=== PATIENT | male | born 1950 | race Caucasian/White ===

== ENCOUNTER 2018-09-05 19:10 | Inpatient (IN) | payer BC ==
[2018-09-05] MEDS: SODIUM CHLORIDE 0.9% 1L BAG IV* (22:23)
[2018-09-05] MEDS: CEFEPIME 2GM/50 ML (PMX) 50 ML IVPB (22:24)
[2018-09-05 22:29] LABS: ADD MAN DIFF? NO
[2018-09-05 22:36] LABS: WHITE BLOOD COUNT 7.4 10^3/ul (4.8-10.8)
[2018-09-05 22:36] LABS: BASOPHILS % 0.4 % (0.0-2.0); EOSINOPHILS # 0.1 10^3/ul (0.0-0.5); EOSINOPHILS % 1.4 % (0.0-7.0); HEMATOCRIT 21.6 % (42.0-52.0); HEMOGLOBIN 7.1 g/dl (14.0-18.0); LYMPHOCYTES % 26.6 % (15.0-51.0); MEAN CORPUSCULAR HEMOGLOBIN 34.8 pg (29.0-33.0); MEAN CORPUSCULAR HGB CONC 32.9 g/dl (32.0-37.0); MEAN CORPUSCULAR VOLUME 105.9 fl (82.0-101.0); MEAN PLATELET VOLUME 9.5 fl (7.4-10.4); MONOCYTE # 0.9 10^3/ul (0.3-0.9); MONOCYTES % 11.7 % (0.0-11.0); NEUTROPHIL # 4.3 10^3/ul (1.6-7.5); NEUTROPHILS % 58.8 % (39.0-77.0); PLATELET COUNT 180 10^3/UL (140-415); RED BLOOD COUNT 2.04 10^6/ul (4.70-6.10); RED CELL DISTRIBUTION WIDTH 14.9 % (11.5-14.5)
[2018-09-05 22:53] LABS: ANION GAP 15 (5-13); BLOOD UREA NITROGEN 62 mg/dl (7-20); CALCIUM 9.7 mg/dl (8.4-10.2); CARBON DIOXIDE 31 mmol/L (21-31); CHLORIDE 95 mmol/L (97-110); CREATININE 10.71 mg/dl (0.61-1.24); Estimated GFR 5 mL/min (>60); GLUCOSE 120 mg/dl (70-220); POTASSIUM 5.1 mmol/L (3.5-5.1); SODIUM 141 mmol/L (135-144)
[2018-09-05 22:55] LABS: INR 0.99; PROTIME 13.2 Sec (11.9-14.9)
[2018-09-05 23:05] LABS: TROPONIN-I < 0.012 ng/ml (0.000-0.120)
[2018-09-05] MEDS: VANCOMYCIN 1 GM (PMX) 250 ML IVPB (23:05)
[2018-09-06] MEDS ORDERED: NACL 0.9% 3 ML SYG IV (03:30)
[2018-09-06] MEDS ORDERED: ONDANSETRON 4 MG TAB PO (03:30)
[2018-09-06] MEDS ORDERED: DOCUSATE SODIUM 100 MG CAP PO (03:30)
[2018-09-06] MEDS: ACETAMINOPHEN 325 MG TAB PO ×3 (04:19→18:24)
[2018-09-06] MEDS: FAMOTIDINE 20 MG TAB PO (04:19)
[2018-09-06 05:51] LABS: ADD MAN DIFF? NO
[2018-09-06 05:57] LABS: ABNORMAL IP MESSAGE 1; BASOPHILS % 0.4 % (0.0-2.0); EOSINOPHILS # 0.1 10^3/ul (0.0-0.5); EOSINOPHILS % 1.3 % (0.0-7.0); HEMATOCRIT 18.2 % (42.0-52.0); LYMPHOCYTES # 1.7 10^3/ul (0.8-2.9); LYMPHOCYTES % 22.1 % (15.0-51.0); MEAN CORPUSCULAR HEMOGLOBIN 35.1 pg (29.0-33.0); MEAN CORPUSCULAR HGB CONC 33.5 g/dl (32.0-37.0); MEAN CORPUSCULAR VOLUME 104.6 fl (82.0-101.0); MONOCYTE # 0.6 10^3/ul (0.3-0.9); MONOCYTES % 7.9 % (0.0-11.0); NEUTROPHIL # 5.1 10^3/ul (1.6-7.5); NEUTROPHILS % 67.6 % (39.0-77.0); PLATELET COUNT 155 10^3/UL (140-415); POSITIVE DIFF @See below; RED BLOOD COUNT 1.74 10^6/ul (4.70-6.10); RED CELL DISTRIBUTION WIDTH 15.2 % (11.5-14.5)
[2018-09-06 05:57] LABS: WHITE BLOOD COUNT 7.5 10^3/ul (4.8-10.8)
[2018-09-06 06:02] LABS: HEMOGLOBIN 6.1 g/dl (14.0-18.0)
[2018-09-06] MEDS: traMADol 50 MG TAB PO ×3 (06:09→15:37)
[2018-09-06 06:29] LABS: ANION GAP 16 (5-13); BLOOD UREA NITROGEN 60 mg/dl (7-20); CALCIUM 8.9 mg/dl (8.4-10.2); CARBON DIOXIDE 25 mmol/L (21-31); CHLORIDE 101 mmol/L (97-110); Estimated GFR 5 mL/min (>60); GLUCOSE 124 mg/dl (70-220); POTASSIUM 4.5 mmol/L (3.5-5.1); SODIUM 142 mmol/L (135-144)
[2018-09-06 06:35] LABS: LACTIC ACID 1.3 mmol/L (0.5-2.0)
[2018-09-06 07:01] LABS: HEMOGLOBIN A1C 5.6 % (0-5.9)
[2018-09-06] MEDS: CALCITRIOL 0.25 MCG CAP PO (08:40)
[2018-09-06] MEDS: FOLIC ACID 1 MG TAB PO (08:40)
[2018-09-06] MEDS: MULTIVIT/CA CARB/B CMPLX/FA TAB PO (08:40)
[2018-09-06] MEDS: LEVETIRACETAM 750 MG TAB PO ×2 (08:40→21:37)
[2018-09-06] MEDS ORDERED: VANCOMYCIN IV PER PHARMACY XX (11:30)
[2018-09-06] MEDS: SEVELAMER 800 MG TAB PO ×2 (12:21→18:27)
[2018-09-06 13:01] LABS: IRON 31 ug/dl (35-150)
[2018-09-06 13:11] LABS: % IRON SATURATION 13 % SAT (22-52); TOTAL IRON BINDING CAPACITY 241 ug/dl (241-421)
[2018-09-06 14:10] LABS: HEPATITIS B SURFACE ANTIGEN NEGATIVE (NEGATIVE)
[2018-09-06 16:48] LABS: ADD MAN DIFF? NO
[2018-09-06 16:50] LABS: BASOPHILS % 0.3 % (0.0-2.0); EOSINOPHILS # 0.3 10^3/ul (0.0-0.5); EOSINOPHILS % 3.8 % (0.0-7.0); HEMATOCRIT 23.9 % (42.0-52.0); HEMOGLOBIN 7.9 g/dl (14.0-18.0); LYMPHOCYTES % 27.8 % (15.0-51.0); MEAN CORPUSCULAR HEMOGLOBIN 33.6 pg (29.0-33.0); MEAN CORPUSCULAR HGB CONC 33.1 g/dl (32.0-37.0); MEAN CORPUSCULAR VOLUME 101.7 fl (82.0-101.0); MEAN PLATELET VOLUME 9.7 fl (7.4-10.4); MONOCYTE # 0.6 10^3/ul (0.3-0.9); MONOCYTES % 8.6 % (0.0-11.0); NEUTROPHIL # 4.2 10^3/ul (1.6-7.5); NEUTROPHILS % 58.8 % (39.0-77.0); PLATELET COUNT 137 10^3/UL (140-415); RED BLOOD COUNT 2.35 10^6/ul (4.70-6.10); RED CELL DISTRIBUTION WIDTH 15.7 % (11.5-14.5)
[2018-09-06 16:50] LABS: WHITE BLOOD COUNT 7.1 10^3/ul (4.8-10.8)
[2018-09-06 18:49] LABS: ADD MAN DIFF? NO
[2018-09-06 18:51] LABS: BASOPHILS % 0.4 % (0.0-2.0); EOSINOPHILS # 0.3 10^3/ul (0.0-0.5); EOSINOPHILS % 3.8 % (0.0-7.0); HEMATOCRIT 25.6 % (42.0-52.0); HEMOGLOBIN 8.7 g/dl (14.0-18.0); LYMPHOCYTES # 1.7 10^3/ul (0.8-2.9); LYMPHOCYTES % 21.8 % (15.0-51.0); MEAN PLATELET VOLUME 9.7 fl (7.4-10.4); MONOCYTE # 0.4 10^3/ul (0.3-0.9); MONOCYTES % 5.1 % (0.0-11.0); NEUTROPHIL # 5.3 10^3/ul (1.6-7.5); NEUTROPHILS % 67.8 % (39.0-77.0); PLATELET COUNT 163 10^3/UL (140-415); RED BLOOD COUNT 2.56 10^6/ul (4.70-6.10); RED CELL DISTRIBUTION WIDTH 15.9 % (11.5-14.5)
[2018-09-06 18:51] LABS: WHITE BLOOD COUNT 7.8 10^3/ul (4.8-10.8)
[2018-09-06] MEDS: VANCOMYCIN 750 MG in SOD CHLORIDE 0.9% 150 ML IVPB (20:12)
[2018-09-06] MEDS: traZODone 50 MG TAB PO (20:14)
[2018-09-06] MEDS: SERTRALINE 50 MG TAB PO (20:14)
[2018-09-06] MEDS: EPOETIN 10000 UNITS/1 ML INJ (ESRD) SC (20:14)
[2018-09-06] MEDS: TAMSULOSIN (SR) 0.4 MG CAP PO (20:14)
[2018-09-06] MEDS: PANTOPRAZOLE (EC) 40 MG TAB PO (20:15)
[2018-09-06] MEDS: clonAZEPAM 0.5 MG TAB PO (20:15)
[2018-09-06] MEDS ORDERED: MELATONIN 2 MG PO (21:00)
[2018-09-06] MEDS: PIPER-TAZO 3.375 GM IV (PMX) 100 ML IVPB (21:39)
[2018-09-06] MEDS: MELATONIN 3 MG TABLET PO (21:39)
[2018-09-06] MEDS ORDERED: PIPER-TAZO 3.375 GM IV (PMX) 100 ML IVPB (22:00)
[2018-09-07 06:21] LABS: ADD MAN DIFF? NO
[2018-09-07 06:26] LABS: WHITE BLOOD COUNT 6.5 10^3/ul (4.8-10.8)
[2018-09-07 06:26] LABS: BASOPHILS % 0.6 % (0.0-2.0); EOSINOPHILS # 0.3 10^3/ul (0.0-0.5); EOSINOPHILS % 4.6 % (0.0-7.0); HEMATOCRIT 22.9 % (42.0-52.0); HEMOGLOBIN 7.6 g/dl (14.0-18.0); LYMPHOCYTES # 1.8 10^3/ul (0.8-2.9); LYMPHOCYTES % 28.2 % (15.0-51.0); MEAN CORPUSCULAR HEMOGLOBIN 34.4 pg (29.0-33.0); MEAN CORPUSCULAR HGB CONC 33.2 g/dl (32.0-37.0); MEAN CORPUSCULAR VOLUME 103.6 fl (82.0-101.0); MEAN PLATELET VOLUME 10.4 fl (7.4-10.4); MONOCYTE # 0.8 10^3/ul (0.3-0.9); MONOCYTES % 12.8 % (0.0-11.0); NEUTROPHIL # 3.4 10^3/ul (1.6-7.5); PLATELET COUNT 139 10^3/UL (140-415); RED BLOOD COUNT 2.21 10^6/ul (4.70-6.10); RED CELL DISTRIBUTION WIDTH 16.5 % (11.5-14.5)
[2018-09-07 06:51] LABS: PHOSPHORUS 3.7 mg/dl (2.5-4.9)
[2018-09-07 06:57] LABS: ANION GAP 13 (5-13); BLOOD UREA NITROGEN 35 mg/dl (7-20); CALCIUM 8.8 mg/dl (8.4-10.2); CARBON DIOXIDE 27 mmol/L (21-31); CHLORIDE 100 mmol/L (97-110); CREATININE 6.49 mg/dl (0.61-1.24); Estimated GFR 9 mL/min (>60); GLUCOSE 117 mg/dl (70-220); POTASSIUM 4.4 mmol/L (3.5-5.1); SODIUM 140 mmol/L (135-144)
[2018-09-07] MEDS: SEVELAMER 800 MG TAB PO ×3 (08:02→18:16)
[2018-09-07] MEDS: FOLIC ACID 1 MG TAB PO (08:30)
[2018-09-07] MEDS: CALCITRIOL 0.25 MCG CAP PO (08:30)
[2018-09-07] MEDS: PIPER-TAZO 3.375 GM IV (PMX) 100 ML IVPB (08:30)
[2018-09-07] MEDS: MULTIVIT/CA CARB/B CMPLX/FA TAB PO ×2 (08:30→08:43)
[2018-09-07] MEDS: PANTOPRAZOLE (EC) 40 MG TAB PO ×2 (08:30→20:18)
[2018-09-07] MEDS: LEVETIRACETAM 750 MG TAB PO ×2 (08:30→20:19)
[2018-09-07] MEDS: traMADol 50 MG TAB PO (08:43)
[2018-09-07 10:46] LABS: RETICULOCYTE RBC 2.24
[2018-09-07 10:46] LABS: RETICULOCYTE COUNT % 1.8 % (0.5-1.5)
[2018-09-07 10:51] LABS: PLATELET COUNT 151 10^3/UL (140-415)
[2018-09-07 11:04] LABS: INR 1.07; PT RATIO 1.1
[2018-09-07 11:05] LABS: PARTIAL THROMBOPLASTIN TIME 43.8 Sec (23.0-35.0)
[2018-09-07 11:06] LABS: THROMBIN TIME 16.9 SEC (13.8-19.1)
[2018-09-07 11:08] LABS: D-DIMER 1657.63 ng/ml (<460)
[2018-09-07 11:28] LABS: FIBRIN SPLIT PRODUCT <10 ug/ml (<10)
[2018-09-07] MEDS: ACETAMINOPHEN 325 MG TAB PO (13:40)
[2018-09-07] MEDS: SUCRALFATE (100 MG/ML) 10ML CUP PO ×2 (17:00→20:18)
[2018-09-07] MEDS: METOCLOPRAMIDE 10 MG INJ IV (18:16)
[2018-09-07] MEDS: MELATONIN 3 MG TABLET PO (20:18)
[2018-09-07] MEDS: TAMSULOSIN (SR) 0.4 MG CAP PO (20:18)
[2018-09-07] MEDS: traZODone 50 MG TAB PO (20:19)
[2018-09-07] MEDS: SERTRALINE 50 MG TAB PO (20:19)
[2018-09-07] MEDS: clonAZEPAM 0.5 MG TAB PO (20:19)
[2018-09-07 23:07] LABS: IMMEDIATE SPIN CROSSMATCH 1 4
[2018-09-08] MEDS: HEPARIN 1000 UNITS/ML 10 ML INJ CATHETER (00:41)
[2018-09-08] MEDS: METOCLOPRAMIDE 10 MG INJ IV ×4 (00:55→17:50)
[2018-09-08] MEDS: PIPER-TAZO 3.375 GM IV (PMX) 100 ML IVPB ×3 (00:55→20:50)
[2018-09-08] MEDS: traMADol 50 MG TAB PO ×2 (00:56→20:50)
[2018-09-08 05:55] LABS: ADD MAN DIFF? NO
[2018-09-08 05:59] LABS: WHITE BLOOD COUNT 7.1 10^3/ul (4.8-10.8)
[2018-09-08 05:59] LABS: BASOPHILS % 0.6 % (0.0-2.0); EOSINOPHILS # 0.4 10^3/ul (0.0-0.5); EOSINOPHILS % 6.2 % (0.0-7.0); HEMATOCRIT 28.1 % (42.0-52.0); HEMOGLOBIN 9.4 g/dl (14.0-18.0); LYMPHOCYTES % 28.7 % (15.0-51.0); MEAN CORPUSCULAR HGB CONC 33.5 g/dl (32.0-37.0); MEAN CORPUSCULAR VOLUME 98.6 fl (82.0-101.0); MEAN PLATELET VOLUME 9.8 fl (7.4-10.4); MONOCYTE # 0.6 10^3/ul (0.3-0.9); MONOCYTES % 8.8 % (0.0-11.0); NEUTROPHIL # 3.9 10^3/ul (1.6-7.5); NEUTROPHILS % 54.4 % (39.0-77.0); PLATELET COUNT 183 10^3/UL (140-415); RED BLOOD COUNT 2.85 10^6/ul (4.70-6.10); RED CELL DISTRIBUTION WIDTH 17.5 % (11.5-14.5)
[2018-09-08 06:18] LABS: ANION GAP 8 (5-13); BLOOD UREA NITROGEN 20 mg/dl (7-20); CALCIUM 9.2 mg/dl (8.4-10.2); CARBON DIOXIDE 31 mmol/L (21-31); CHLORIDE 104 mmol/L (97-110); CREATININE 4.52 mg/dl (0.61-1.24); Estimated GFR 13 mL/min (>60); GLUCOSE 104 mg/dl (70-220); POTASSIUM 4.5 mmol/L (3.5-5.1); SODIUM 143 mmol/L (135-144)
[2018-09-08 06:20] LABS: VANCOMYCIN,RANDOM 11.8 ug/ml
[2018-09-08] MEDS: SEVELAMER 800 MG TAB PO ×3 (09:10→17:49)
[2018-09-08] MEDS: SUCRALFATE (100 MG/ML) 10ML CUP PO ×4 (09:10→20:50)
[2018-09-08] MEDS: FOLIC ACID 1 MG TAB PO (09:10)
[2018-09-08] MEDS: PANTOPRAZOLE (EC) 40 MG TAB PO ×2 (09:10→20:50)
[2018-09-08] MEDS: LEVETIRACETAM 750 MG TAB PO ×2 (09:10→20:51)
[2018-09-08] MEDS: MULTIVIT/CA CARB/B CMPLX/FA TAB PO (09:10)
[2018-09-08] MEDS: CALCITRIOL 0.25 MCG CAP PO (09:11)
[2018-09-08 10:43] LABS: OCCULT BLOOD STOOL NEGATIVE (NEGATIVE)
[2018-09-08] MEDS: EPOETIN 10000 UNITS/1 ML INJ (ESRD) SC (17:50)
[2018-09-08] MEDS: traZODone 50 MG TAB PO (20:50)
[2018-09-08] MEDS: MELATONIN 3 MG TABLET PO (20:51)
[2018-09-08] MEDS: SERTRALINE 50 MG TAB PO (20:51)
[2018-09-08] MEDS: TAMSULOSIN (SR) 0.4 MG CAP PO (20:51)
[2018-09-08] MEDS: clonAZEPAM 0.5 MG TAB PO (20:51)
[2018-09-09] MEDS: METOCLOPRAMIDE 10 MG INJ IV ×2 (00:38→05:31)
[2018-09-09 06:21] LABS: ADD MAN DIFF? NO
[2018-09-09 06:29] LABS: WHITE BLOOD COUNT 6.8 10^3/ul (4.8-10.8)
[2018-09-09 06:29] LABS: BASOPHILS % 0.6 % (0.0-2.0); EOSINOPHILS # 0.5 10^3/ul (0.0-0.5); EOSINOPHILS % 7.3 % (0.0-7.0); HEMATOCRIT 28.6 % (42.0-52.0); HEMOGLOBIN 9.3 g/dl (14.0-18.0); LYMPHOCYTES # 2.5 10^3/ul (0.8-2.9); LYMPHOCYTES % 36.9 % (15.0-51.0); MEAN CORPUSCULAR HEMOGLOBIN 32.9 pg (29.0-33.0); MEAN CORPUSCULAR HGB CONC 32.5 g/dl (32.0-37.0); MEAN CORPUSCULAR VOLUME 101.1 fl (82.0-101.0); MONOCYTE # 0.6 10^3/ul (0.3-0.9); MONOCYTES % 8.7 % (0.0-11.0); PLATELET COUNT 189 10^3/UL (140-415); RED BLOOD COUNT 2.83 10^6/ul (4.70-6.10); RED CELL DISTRIBUTION WIDTH 17.2 % (11.5-14.5)
[2018-09-09 06:49] LABS: ANION GAP 10 (5-13); BLOOD UREA NITROGEN 37 mg/dl (7-20); CALCIUM 9.4 mg/dl (8.4-10.2); CARBON DIOXIDE 25 mmol/L (21-31); CHLORIDE 108 mmol/L (97-110); CREATININE 6.89 mg/dl (0.61-1.24); Estimated GFR 8 mL/min (>60); GLUCOSE 100 mg/dl (70-220); POTASSIUM 5.1 mmol/L (3.5-5.1); SODIUM 143 mmol/L (135-144)
[2018-09-09 07:09] LABS: PHOSPHORUS 3.1 mg/dl (2.5-4.9)
[2018-09-09 07:09] LABS: MAGNESIUM 2.1 mg/dl (1.7-2.5)
[2018-09-09] MEDS: FOLIC ACID 1 MG TAB PO (08:30)
[2018-09-09] MEDS: PANTOPRAZOLE (EC) 40 MG TAB PO ×2 (08:30→22:56)
[2018-09-09] MEDS: SUCRALFATE (100 MG/ML) 10ML CUP PO ×4 (08:30→22:55)
[2018-09-09] MEDS: LEVETIRACETAM 750 MG TAB PO ×2 (08:30→22:59)
[2018-09-09] MEDS: CIPROFLOXACIN 400MG/D5W 200 ML IVPB (08:30)
[2018-09-09] MEDS: SEVELAMER 800 MG TAB PO ×3 (08:31→16:54)
[2018-09-09] MEDS: CALCITRIOL 0.25 MCG CAP PO (08:31)
[2018-09-09] MEDS: MULTIVIT/CA CARB/B CMPLX/FA TAB PO (08:31)
[2018-09-09] MEDS ORDERED: METOCLOPRAMIDE 10 MG INJ IV (09:00)
[2018-09-09] MEDS: traMADol 50 MG TAB PO ×3 (10:54→22:57)
[2018-09-09] MEDS: LACTOBACILLUS RHAMNOSUS CAP PO ×2 (12:47→22:56)
[2018-09-09] MEDS: ACETAMINOPHEN 325 MG TAB PO ×2 (12:47→20:05)
[2018-09-09 19:06] LABS: ADD UMIC YES; UR ASCORBIC ACID NEGATIVE (NEGATIVE); UR BILIRUBIN (Dip) NEGATIVE (NEGATIVE); UR BLOOD (Dip) NEGATIVE (NEGATIVE); UR CLARITY CLEAR (CLEAR); UR COLOR YELLOW (YELLOW); UR GLUCOSE (Dip) 1+ mg/dL (NEGATIVE); UR KETONES (Dip) NEGATIVE (NEGATIVE); UR LEUKOCYTE ESTERASE (Dip) NEGATIVE Leu/ul (NEGATIVE); UR NITRITE (Dip) NEGATIVE (NEGATIVE); UR RBC 1 /HPF (0-5); UR SPECIFIC GRAVITY (Dip) 1.014 (1.003-1.030); UR TOTAL PROTEIN (Dip) 2+ mg/dl (NEGATIVE); UR UROBILINOGEN (Dip) NEGATIVE (NEGATIVE); UR WBC 2 /HPF (0-5)
[2018-09-09] MEDS: HEPARIN 1000 UNITS/ML 10 ML INJ CATHETER (22:13)
[2018-09-09] MEDS: clonAZEPAM 0.5 MG TAB PO (22:55)
[2018-09-09] MEDS: TAMSULOSIN (SR) 0.4 MG CAP PO (22:55)
[2018-09-09] MEDS: traZODone 50 MG TAB PO (22:55)
[2018-09-09] MEDS: MELATONIN 3 MG TABLET PO (22:55)
[2018-09-09] MEDS: SERTRALINE 50 MG TAB PO (22:56)
[2018-09-10 05:48] LABS: ADD MAN DIFF? NO
[2018-09-10 05:59] LABS: BASOPHIL # 0.1 10^3/ul (0.0-0.1); BASOPHILS % 0.6 % (0.0-2.0); EOSINOPHILS # 0.5 10^3/ul (0.0-0.5); HEMATOCRIT 29.1 % (42.0-52.0); HEMOGLOBIN 9.6 g/dl (14.0-18.0); LYMPHOCYTES # 2.2 10^3/ul (0.8-2.9); LYMPHOCYTES % 28.1 % (15.0-51.0); MEAN CORPUSCULAR HEMOGLOBIN 32.5 pg (29.0-33.0); MEAN CORPUSCULAR VOLUME 98.6 fl (82.0-101.0); MEAN PLATELET VOLUME 9.9 fl (7.4-10.4); MONOCYTE # 0.6 10^3/ul (0.3-0.9); MONOCYTES % 7.6 % (0.0-11.0); NEUTROPHIL # 4.4 10^3/ul (1.6-7.5); NEUTROPHILS % 55.4 % (39.0-77.0); PLATELET COUNT 205 10^3/UL (140-415); RED BLOOD COUNT 2.95 10^6/ul (4.70-6.10); RED CELL DISTRIBUTION WIDTH 16.3 % (11.5-14.5)
[2018-09-10 05:59] LABS: WHITE BLOOD COUNT 7.9 10^3/ul (4.8-10.8)
[2018-09-10 06:16] LABS: ANION GAP 12 (5-13); BLOOD UREA NITROGEN 23 mg/dl (7-20); CALCIUM 9.5 mg/dl (8.4-10.2); CARBON DIOXIDE 27 mmol/L (21-31); CHLORIDE 101 mmol/L (97-110); CREATININE 4.74 mg/dl (0.61-1.24); Estimated GFR 12 mL/min (>60); GLUCOSE 100 mg/dl (70-220); POTASSIUM 4.5 mmol/L (3.5-5.1); SODIUM 140 mmol/L (135-144)
[2018-09-10] MEDS: CALCITRIOL 0.25 MCG CAP PO (08:59)
[2018-09-10] MEDS: SUCRALFATE (100 MG/ML) 10ML CUP PO ×4 (08:59→22:26)
[2018-09-10] MEDS: PANTOPRAZOLE (EC) 40 MG TAB PO ×2 (08:59→22:27)
[2018-09-10] MEDS: SEVELAMER 800 MG TAB PO ×3 (09:00→17:42)
[2018-09-10] MEDS: MULTIVIT/CA CARB/B CMPLX/FA TAB PO (09:00)
[2018-09-10] MEDS: LACTOBACILLUS RHAMNOSUS CAP PO ×2 (09:00→22:26)
[2018-09-10] MEDS: CIPROFLOXACIN 400MG/D5W 200 ML IVPB (09:00)
[2018-09-10] MEDS: LEVETIRACETAM 750 MG TAB PO ×2 (09:01→22:28)
[2018-09-10] MEDS: FOLIC ACID 1 MG TAB PO (09:01)
[2018-09-10] MEDS: traMADol 50 MG TAB PO (10:33)
[2018-09-10] MEDS: ACETAMINOPHEN 325 MG TAB PO (10:34)
[2018-09-10] MEDS: clonAZEPAM 0.5 MG TAB PO (22:26)
[2018-09-10] MEDS: SERTRALINE 50 MG TAB PO (22:26)
[2018-09-10] MEDS: TAMSULOSIN (SR) 0.4 MG CAP PO (22:27)
[2018-09-10] MEDS: MELATONIN 3 MG TABLET PO (22:27)
[2018-09-10] MEDS: traZODone 50 MG TAB PO (22:27)
[2018-09-11 05:34] LABS: ADD MAN DIFF? NO
[2018-09-11 05:36] LABS: WHITE BLOOD COUNT 8.1 10^3/ul (4.8-10.8)
[2018-09-11 05:36] LABS: BASOPHILS % 0.5 % (0.0-2.0); EOSINOPHILS # 0.5 10^3/ul (0.0-0.5); HEMATOCRIT 30.2 % (42.0-52.0); HEMOGLOBIN 9.7 g/dl (14.0-18.0); LYMPHOCYTES # 2.5 10^3/ul (0.8-2.9); LYMPHOCYTES % 30.6 % (15.0-51.0); MEAN CORPUSCULAR HEMOGLOBIN 32.4 pg (29.0-33.0); MEAN CORPUSCULAR HGB CONC 32.1 g/dl (32.0-37.0); MEAN PLATELET VOLUME 9.6 fl (7.4-10.4); MONOCYTE # 0.6 10^3/ul (0.3-0.9); MONOCYTES % 7.7 % (0.0-11.0); NEUTROPHIL # 4.3 10^3/ul (1.6-7.5); PLATELET COUNT 244 10^3/UL (140-415); RED BLOOD COUNT 2.99 10^6/ul (4.70-6.10)
[2018-09-11 05:58] LABS: ANION GAP 8 (5-13); BLOOD UREA NITROGEN 23 mg/dl (7-20); CALCIUM 9.3 mg/dl (8.4-10.2); CARBON DIOXIDE 28 mmol/L (21-31); CHLORIDE 103 mmol/L (97-110); CREATININE 4.68 mg/dl (0.61-1.24); Estimated GFR 13 mL/min (>60); GLUCOSE 102 mg/dl (70-220); POTASSIUM 4.4 mmol/L (3.5-5.1); SODIUM 139 mmol/L (135-144)
[2018-09-11] MEDS: LACTOBACILLUS RHAMNOSUS CAP PO (08:35)
[2018-09-11] MEDS: MULTIVIT/CA CARB/B CMPLX/FA TAB PO (08:35)
[2018-09-11] MEDS: LEVETIRACETAM 750 MG TAB PO (08:35)
[2018-09-11] MEDS: SUCRALFATE (100 MG/ML) 10ML CUP PO ×3 (08:35→18:02)
[2018-09-11] MEDS: FOLIC ACID 1 MG TAB PO (08:35)
[2018-09-11] MEDS: PANTOPRAZOLE (EC) 40 MG TAB PO (08:35)
[2018-09-11] MEDS: SEVELAMER 800 MG TAB PO ×3 (08:35→17:35)
[2018-09-11] MEDS: CALCITRIOL 0.25 MCG CAP PO (08:35)
[2018-09-11] MEDS: CIPROFLOXACIN 400MG/D5W 200 ML IVPB (08:36)
[2018-09-11] MEDS: HYDROCODONE/APAP (5/325) TAB PO ×2 (09:21→16:25)
[2018-09-11] MEDS: ACETAMINOPHEN 325 MG TAB PO ×2 (11:21→18:03)
[2018-09-11] MEDS ORDERED: LIDOCAINE 1% (MPF) 30 ML INJ SC ×2 (15:00→15:30)
[2018-09-11] MEDS: EPOETIN 10000 UNITS/1 ML INJ (ESRD) SC (17:00)
== END 2018-09-11 18:15 | disposition home or self-care (01) | DRG 871 ==
LOC: E/R 19:10 → PP2 09-06 02:42
PROC: 5A1D70Z Performance of Urinary Filtration, Intermittent, Less than 6 Hours Per Day (ICD-10-PCS; principal; 2018-09-06)
PROC: 30233N1 Transfusion of Nonautologous Red Blood Cells into Peripheral Vein, Percutaneous Approach (ICD-10-PCS; 2018-09-06)
DX: A41.53 Sepsis due to Serratia (principal); N18.6 End stage renal disease; I12.0 Hypertensive chronic kidney disease with stage 5 chronic kidney disease or end stage renal disease; D64.9 Anemia, unspecified; Z99.2 Dependence on renal dialysis; N40.0 Benign prostatic hyperplasia without lower urinary tract symptoms; K29.70 Gastritis, unspecified, without bleeding; G40.909 Epilepsy, unspecified, not intractable, without status epilepticus; F32.9 Major depressive disorder, single episode, unspecified
CPT/HCPCS: 36415; 36430; 71045; 74176; 80048; 80202; 81001; 82270; 82607; 82728; 83036; 83540; 83605; 83735; 84100; 84484; 85025; 85045; 85049; 85362; 85378; 85384; 85610; 85670; 85730; 86320; 86850; 86900; 86901; 86920; 87040; 87075; 87081; 87340; 90935; 93005; 96374; 96375; 99291-25; G0378

== ENCOUNTER 2018-11-19 06:30 | Day surgery (SDC) | payer BC ==
[2018-11-19] MEDS ORDERED: LIDOCAINE 1% (MDV) 20 ML INJ (09:04)
[2018-11-19] MEDS ORDERED: HEPARIN 1000 UNITS/NS (A-LINE) 1,000 ML (09:04)
[2018-11-19] MEDS ORDERED: IODIXANOL LOCM 100 ML BTL (09:04)
== END 2018-11-19 09:45 | disposition home or self-care (01) ==
LOC: SDS 06:30
DX: T82.898A Other specified complication of vascular prosthetic devices, implants and grafts, initial encounter (principal); Y84.1 Kidney dialysis as the cause of abnormal reaction of the patient, or of later complication, without mention of misadventure at the time of the procedure; I12.0 Hypertensive chronic kidney disease with stage 5 chronic kidney disease or end stage renal disease; N18.6 End stage renal disease
CPT/HCPCS: 36902